=== PATIENT | female | born 1950 | race Hispanic/Latino ===

== ENCOUNTER → 2017-07-09 | Outpatient (CLI) | payer MEDICARE ==
--- NOTE | 2017-07-09 16:25 | Diagnostic Imaging Report ---
PROCEDURE:ANKLE COMPLETE BILATERAL INDICATION:Bilateral ankle pain COMPARISON:None. FINDINGS: Right: Generalized osteopenia, which limits evaluation of the bony structures. No acute, displaced fracture or dislocation. No lytic or blastic lesion. Ankle mortise is preserved. No osteochondral lesion. Large anterior and small posterior calcaneal enthesophytes. No significant soft tissue swelling. Left: Generalized osteopenia, which limits evaluation of the bony structures. No acute, displaced fracture or dislocation. No lytic or blastic lesion. Ankle mortise is preserved. No osteochondral lesion. Large anterior calcaneal enthesophyte. Mild soft tissue swelling in the medial aspect of the ankle. CONCLUSION: 1. Generalized osteopenia, which limits evaluation of bony structures. No acute abnormalities. 2. Bilateral large anterior calcaneal enthesophytes. 3. Mild soft tissue swelling in the medial aspect of the left ankle Armand Zambrano M.D. Dictated by: Armand Zambrano M.D. on 07/09/2017 at 16:27 Electronically approved by: Armand Zambrano M.D. on 07/09/2017 at 16:27
== END ==
LOC: RAD 14:51
PROVIDERS: ATTEND Student in an Organized Health Care Education/Training Program

== ENCOUNTER → 2024-11-08 | Outpatient (REF) | payer MEDICARE | LOC: MAMMO 08:05 | PROVIDERS: ATTEND Family Medicine | DX: Z12.31 Encounter for screening mammogram for malignant neoplasm of breast (principal) | CPT/HCPCS: 77067 ==